=== PATIENT | female | born 1935 | race Two or more races ===

== ENCOUNTER 2019-10-07 11:38 | Outpatient (CLI) | payer OTHER | END 2019-10-07 12:30 | disposition home or self-care (01) | LOC: WOUND MED 11:38 | DX: L97.812 Non-pressure chronic ulcer of other part of right lower leg with fat layer exposed (principal) | CPT/HCPCS: 11042; A4554; A4930; A6216; G0463 ==

== ENCOUNTER 2019-10-14 07:28 | Outpatient (CLI) | payer OTHER | END 2019-10-14 08:30 | disposition home or self-care (01) | LOC: WOUND MED 07:28 | DX: L97.812 Non-pressure chronic ulcer of other part of right lower leg with fat layer exposed (principal) | CPT/HCPCS: 11042; A4554; A4930; A6196; A6216; A6219 ==

== ENCOUNTER 2019-10-21 09:57 | Outpatient (CLI) | payer OTHER | END 2019-10-21 10:30 | disposition home or self-care (01) | LOC: WOUND MED 09:57 | DX: L97.812 Non-pressure chronic ulcer of other part of right lower leg with fat layer exposed (principal) | CPT/HCPCS: G0463; A4554; A4930; A6216 ==

== ENCOUNTER 2019-11-18 09:18 | Outpatient (CLI) | payer OTHER | END 2019-11-18 10:22 | disposition home or self-care (01) | LOC: WOUND MED 09:18 | DX: L97.812 Non-pressure chronic ulcer of other part of right lower leg with fat layer exposed (principal) | CPT/HCPCS: 11042; A4554; A4930; A6216; A6219 ==

== ENCOUNTER 2019-11-25 08:48 | Outpatient (CLI) | payer OTHER | END 2019-11-25 10:00 | disposition home or self-care (01) | LOC: WOUND MED 08:48 | DX: L97.812 Non-pressure chronic ulcer of other part of right lower leg with fat layer exposed (principal) | CPT/HCPCS: 11042; A4554; A4930; A6212; A6216; A6219 ==

== ENCOUNTER 2019-12-02 08:48 | Outpatient (CLI) | payer OTHER | END 2019-12-02 09:33 | disposition home or self-care (01) | LOC: WOUND MED 08:48 | DX: L97.812 Non-pressure chronic ulcer of other part of right lower leg with fat layer exposed (principal) | CPT/HCPCS: G0463; A4554; A4930; A6216 ==

== ENCOUNTER 2020-06-11 10:54 | Outpatient (CLI) | payer OTHER | END 2020-06-11 12:00 | disposition home or self-care (01) | LOC: WOUND MED 10:54 | PROVIDERS: ATTEND Specialist | DX: L97.812 Non-pressure chronic ulcer of other part of right lower leg with fat layer exposed (principal) | CPT/HCPCS: 11042; G0463; A4554; A4930; A6216 ==

== ENCOUNTER 2020-06-18 07:36 | Outpatient (CLI) | payer OTHER | END 2020-06-18 11:45 | disposition home or self-care (01) | LOC: WOUND MED 07:36 | PROVIDERS: ATTEND Specialist | DX: L97.812 Non-pressure chronic ulcer of other part of right lower leg with fat layer exposed (principal); A49.02 Methicillin resistant Staphylococcus aureus infection, unspecified site | CPT/HCPCS: 11042; A4554; A4930; A6216; A6266 ==

== ENCOUNTER 2020-06-25 07:29 | Outpatient (CLI) | payer OTHER | END 2020-06-25 09:00 | disposition home or self-care (01) | LOC: WOUND MED 07:29 | PROVIDERS: ATTEND Specialist | DX: L97.812 Non-pressure chronic ulcer of other part of right lower leg with fat layer exposed (principal); L89.892 Pressure ulcer of other site, stage 2; A49.02 Methicillin resistant Staphylococcus aureus infection, unspecified site | CPT/HCPCS: 11042; A4554; A4930; A6216; A6219 ==

== ENCOUNTER 2020-07-05 14:41 | Outpatient (CLI) | payer OTHER | END 2020-07-05 15:00 | disposition home or self-care (01) | LOC: WOUND MED 14:41 | PROVIDERS: ATTEND Specialist | DX: L97.812 Non-pressure chronic ulcer of other part of right lower leg with fat layer exposed (principal); L89.892 Pressure ulcer of other site, stage 2 | CPT/HCPCS: G0463; A4554; A4930; A6216 ==

== ENCOUNTER 2020-10-28 11:05 | Inpatient (IN) | payer OTHER ==
[~2020-10-28] VITALS: Ht 165.1 cm; Wt 81.6 kg
[2020-10-28] MEDS ORDERED: OXYBUTYNIN CHLO15 MG PO (11:22)
[2020-10-28] MEDS ORDERED: ELIQUIS5 MG PO (11:23)
[2020-10-28] MEDS ORDERED: LOSARTAN POTAS100 MG PO (11:23)
== END 2020-11-04 17:30 | disposition home or self-care (01) | DRG 603 ==
LOC: ER 11:05 → MEDI 15:26
PROVIDERS: ADMIT Internal Medicine; ATTEND Internal Medicine
PROC: 02HV33Z Insertion of Infusion Device into Superior Vena Cava, Percutaneous Approach (ICD-10-PCS; principal; 2020-10-29)
DX: L03.116 Cellulitis of left lower limb (principal); L97.829 Non-pressure chronic ulcer of other part of left lower leg with unspecified severity; L97.819 Non-pressure chronic ulcer of other part of right lower leg with unspecified severity; L03.115 Cellulitis of right lower limb; Z20.828 Contact with and (suspected) exposure to other viral communicable diseases; I48.91 Unspecified atrial fibrillation; Z95.0 Presence of cardiac pacemaker; E03.9 Hypothyroidism, unspecified; J43.9 Emphysema, unspecified; I11.0 Hypertensive heart disease with heart failure; I50.9 Heart failure, unspecified; Z79.01 Long term (current) use of anticoagulants; B96.5 Pseudomonas (aeruginosa) (mallei) (pseudomallei) as the cause of diseases classified elsewhere